=== PATIENT | female | born 2000 | race Two or more races ===

== ENCOUNTER 2025-01-24 13:45 | Inpatient (IN) | payer OTHER ==
[~2025-01-24] VITALS: Ht 165.1 cm; Wt 97.1 kg
[2025-01-27 17:00] VITALS: BP 139/89
[2025-01-27] MEDS ORDERED: AMPICILLIN SODIUM 2,000 MG VIAL IV STA (17:23)
[2025-01-27] MEDS ORDERED: AMPICILLIN SODIUM 2,000 MG VIAL ONE (17:27)
[2025-01-27] MEDS ORDERED: RINGERS SOLUTION,LACTATED 1,000 ML IV SCH (17:30)
[2025-01-27] MEDS ORDERED: OXYTOCIN 500 ML IV SCH (17:30)
[2025-01-27] MEDS ORDERED: PRENATABS RX T1 EACH PO (17:52)
[2025-01-27 18:04] LABS: BASO % 0.2 % (0.1-1.2); EOS # 0.03 (0.04-0.54); EOS % 0.3 % (0.7-7.0); LYMPH # 2.23 (1.18-3.74); LYMPH % 19.6 % (19.3-53.1); MEAN PLATELET VOLUME 10.90 fl (9.4-12.4); MONO # 0.80 (0.24-0.82); MONO % 7.0 % (4.7-12.5); NEUT # 8.25 (1.56-6.13); NEUT % 72.5 % (34.0-71.1); RED CELL DISTRIBUTION WIDTH 13.7 % (11.6-14.4)
[2025-01-27 18:30] LABS: INR < 0.93
[2025-01-27 18:45] LABS: ALT/SGPT 19.0 U/L (12-78); AST/SGOT 20.0 U/L (15-37); BILIRUBIN TOTAL 0.52 mg/dL (0.3-1.2); BUN CREA RATIO 19.0 (7.0-25.0); CREATININE SERUM 0.59 mg/dL (0.55-1.02); GFR 126.31; GLOBULINA 3.5 G/DL (2.4-3.5); GLUCOSE FASTING 86.0 mg/dL (65-100); OSMOLALITY SERUM 276.0 MOSM/KG (275-295)
[2025-01-27 20:07] VITALS: BP 137/72
[2025-01-27] MEDS ORDERED: AMPICILLIN SODIUM 1,000 MG VIAL IV SCH (21:00)
[2025-01-27] MEDS ORDERED: MORPHINE SULFATE 4 MG/ML CARTRIDGE IV STA (21:40)
[2025-01-27 23:06] VITALS: BP 140/88
[2025-01-28] VITALS (9 sets, daily range): BP systolic 88–143; BP diastolic 57–89
[2025-01-28] MEDS ORDERED: LIDOCAINE HCL 1% 10ML VIAL ONE (02:08)
[2025-01-28] MEDS ORDERED: CHLORHEXIDINE GLUCONATE 120 ML BOTTLE TOP ONE ×2 (02:08→04:15)
[2025-01-28] MEDS ORDERED: ERYTHROMYCIN BASE OPHT 1GM EACH TUBE OP ONE ×2 (02:08→04:15)
[2025-01-28] MEDS ORDERED: OXYTOCIN 20 UNITS/1000ML RL PIGGYBAG IV ONE (02:08)
[2025-01-28] MEDS ORDERED: CARBOPROST TROMETHAMINE 250 MCG/ML AMPUL IM ONE (03:25)
[2025-01-28] MEDS ORDERED: OXYTOCIN 1,000 ML IV SCH (04:15)
[2025-01-28] MEDS ORDERED: ACETAMINOPHEN 500 MG GEL..CAP PO PRN (04:15)
[2025-01-28] MEDS ORDERED: LIDOCAINE HCL 1% 10ML VIAL IJ ONE (04:15)
[2025-01-28] MEDS ORDERED: CARBOPROST TROMETHAMINE 250 MCG/ML AMPUL IM STA (04:21)
[2025-01-28] MEDS ORDERED: HYDROCORTISONE 2.5% 30 GM TUBE RECTAL SCH (09:00)
[2025-01-28] MEDS ORDERED: BENZOCAINE/MENTHOL 90 ML BOTTLE TOP SCH (09:00)
[2025-01-28 14:22] LABS: BASO % 0.2 % (0.1-1.2); EOS # 0.01 (0.04-0.54); EOS % 0.1 % (0.7-7.0); LYMPH # 2.67 (1.18-3.74); LYMPH % 13.6 % (19.3-53.1); MEAN PLATELET VOLUME 11.40 fl (9.4-12.4); MONO # 1.52 (0.24-0.82); MONO % 7.8 % (4.7-12.5); NEUT # 15.24 (1.56-6.13); NEUT % 77.6 % (34.0-71.1); RED CELL DISTRIBUTION WIDTH 13.7 % (11.6-14.4)
[2025-01-29 00:43] VITALS: BP 125/74
[2025-01-29 08:00] VITALS: BP 104/63
[2025-01-30 00:10] VITALS: BP 121/78
[2025-01-30 08:00] VITALS: BP 132/85
[2025-01-30 16:00] VITALS: BP 135/92
[2025-01-31 00:09] VITALS: BP 129/85; O2SAT 99
[2025-01-31 08:00] VITALS: BP 140/80
== END 2025-01-31 18:39 | disposition home or self-care (01) | DRG 807 ==
LOC: LDR 01-27 17:15 → OB/GYN 01-28 04:11 → LDR 01-29 13:45 → OB/GYN 01-31 18:39
PROVIDERS: ADMIT Specialist; ATTEND Specialist
PROC: 4A1HXCZ Monitoring of Products of Conception, Cardiac Rate, External Approach (ICD-10-PCS; 2025-01-27)
PROC: 10E0XZZ Delivery of Products of Conception, External Approach (ICD-10-PCS; principal; 2025-01-28)
PROC: 0HQ9XZZ Repair Perineum Skin, External Approach (ICD-10-PCS; 2025-01-28)
DX: O70.0 First degree perineal laceration during delivery (principal); Z37.0 Single live birth; O99.824 Streptococcus B carrier state complicating childbirth; Z3A.39 39 weeks gestation of pregnancy